=== PATIENT | male | born 1995 | race Caucasian/White ===

== ENCOUNTER 2025-07-08 01:32 | Emergency (ER) | payer OTHER ==
[~2025-07-08] VITALS: Ht 172.7 cm; Wt 90.9 kg
[2025-07-08 01:39] VITALS: BP 140/90; PULSE 76; RESP 18; TEMP 98.6; O2SAT 98
== END 2025-07-08 03:57 | disposition left against medical advice (07) ==
LOC: EMS 01:35
DX: S61.210A Laceration without foreign body of right index finger without damage to nail, initial encounter (principal); Z53.21 Procedure and treatment not carried out due to patient leaving prior to being seen by health care provider; Y04.0XXA Assault by unarmed brawl or fight, initial encounter; Y93.89 Activity, other specified; Y92.89 Other specified places as the place of occurrence of the external cause; Y99.8 Other external cause status
CPT/HCPCS: 99281; Z7502